=== PATIENT | female | born 1965 | race African-American/Black ===

== ENCOUNTER 2017-07-17 11:47 | Inpatient (IN) | payer OTHER ==
[2017-07-17 14:15] VITALS: BMI 22.7
--- NOTE | 2017-07-17 17:49 | HP ---
CIWA Score - CIWA Score Nausea/Vomitin-Mild Nausea/No Vomiting Muscle Tremors: 4-Moderate,w/Arms Extend Anxiety: 3 Agitation: 4-Moderately Restless Paroxysmal Sweats: 3 Orientation: 0-Oriented Tacttile Disturbances: 0-None Auditory Disturbances: 0-None Visual Disturbances: 0-None Headache: 0-None Present CIWA-Ar Total Score: 15 Admission ROS BHS - HPI Chief Complaint: I am here for detox and rehab. Allergies/Adverse Reactions: Allergies Allergy/AdvReac Type Severity Reaction Status Date / Time ibuprofen [From Motrin] Allergy Severe Hives Verified 07/17/17 17:20 lactose AdvReac Severe diarrhea Verified 07/17/17 17:20 History of Present Illness: pt is a 51yr old female with a history of alcohol and crack/cocaine dependence seeking detox for treatment. pt has a h/o of HIV since 1998 and is currently on antiviral medication. unsure of virial load and tcell count. Exam Limitations: No Limitations - Ebola screening Have you traveled outside of the country in the last 21 days: No Have you had contact with anyone from an Ebola affected area: No Have you been sick,other than usual withdrawal symptoms: No Do you have a fever: No - Review of Systems Constitutional: Chills, Diaphoresis, Loss of Appetite, Night Sweats, Changes in sleep EENT: reports: No Symptoms Reported Respiratory: reports: No Symptoms reported Cardiac: reports: No Symptoms Reported GI: reports: Poor Fluid Intake, Indigestion : reports: No Symptoms Reported Musculoskeletal: reports: Back Pain Integumentary: reports: Flushing, Sweating Neuro: reports: Tingling, Tremors Endocrine: reports: Excessive Sweating, Flushing Hematology: reports: No Symptoms Reported Psychiatric: reports: Judgement Intact, Mood/Affect Appropiate, Orientated x3, Agitated, Anxious Other Systems: Reviewed and Negative Patient History - Patient Medical History Hx Anemia: Yes Hx Asthma: Yes Hx Chronic Obstructive Pulmonary Disease (COPD): No Hx Cancer: No Hx Cardiac Disorders: No Hx Congestive Heart Failure: No Hx Hypertension: Yes Hx Hypercholesterolemia: Yes Hx Pacemaker: No HX Cerebrovascular Accident: No Hx Seizures: No Hx Dementia: No Hx Diabetes: No Hx Gastrointestinal Disorders: Yes (acid reflux) Hx Liver Disease: No Hx Genitourinary Disorders: No Hx Sexually Transmitted Disorders: Yes (genital herpes) Hx Renal Disease (ESRD): No Hx Human Immunodeficiency Virus (HIV): Yes (since 1998) Hx Hepatitis C: No Hx Depression: Yes Hx Suicide Attempt: No (denies) Hx Bipolar Disorder: No Hx Schizophrenia: No - Patient Surgical History Past Surgical History: Yes Hx Neurologic Surgery: No Hx Cataract Extraction: No Hx Cardiac Surgery: No Hx Lung Surgery: No Hx Breast Surgery: No Hx Breast Biopsy: No Hx Abdominal Surgery: No Hx Appendectomy: No Hx Cholecystectomy: No Hx Genitourinary Surgery: No Hx Section: Yes ( at age 37,) Hx Orthopedic Surgery: No Other Surgical History: ectopic at age 20 Anesthesia Reaction: No - PPD History Previous Implant?: Yes Documented Results: Negative w/o proof Date: 11/16/13 PPD to be Administered?: Yes - Reproductive History Patient is a Female of Child Bearing Age (11 -55 yrs old): Yes LMP comment: 2014 Patient : No - Smoking Cessation Smoking history: Current every day smoker Have you smoked in the past 12 months: Yes Aproximately how many cigarettes per day: 40 Hx Chewing Tobacco Use: No Initiated information on smoking cessation: Yes 'Breaking Loose' booklet given: 07/17/17 - Substance & Tx. History Hx Alcohol Use: Yes Hx Substance Use: Yes Substance Use Type: Alcohol, Heroin Hx Substance Use Treatment: Yes (last detox 2013 [facility]) - Substances Abused Crack Route: Smoking Frequency: 3-6 times per week Amount used: $100 Age of first use: 18 Date of Last Use: 07/16/17 Alcohol-vodka/beer Route: Oral Frequency: Daily Amount used: 4 pts./2-6 pks. Age of first use: 15 Date of Last Use: 07/16/17 Family Disease History - Family Disease History Family History: Denies Family Disease History: CA: Father ( lung), Mother ( kidney) Admission Physical Exam BHS - Vital Signs Vital Signs: Vital Signs - 24 hr 07/17/17 14:09 Temperature 99.2 F Pulse Rate 99 H Respiratory 20 Rate Blood Pressure 145/87 - Physical General Appearance: Yes: Appropriately Dressed, Moderate Distress, Irritable, Sweating, Anxious HEENTM: Yes: Hearing grossly Normal, Normal Voice Respiratory: Yes: Lungs Clear, Normal Breath Sounds, No Respiratory Distress Neck: Yes: No masses,lesions,Nodules Breast: Yes: Within Normal Limits Cardiology: Yes: Regular Rhythm, Regular Rate, S1, S2 Abdominal: Yes: Normal Bowel Sounds, Non Tender, Soft Genitourinary: Yes: Within Normal Limits Back: Yes: Normal Inspection Musculoskeletal: Yes: Gait Steady, Back pain Extremities: Yes: Normal Capillary Refill, Normal Inspection, Non-Tender, Tremors Neurological: Yes: Fully Oriented, Normal Mood/Affect, Normal Response Integumentary: Yes: Normal Color, Diaphoresis Lymphatic: Yes: Within Normal Limits - Diagnostic (1) Asthma Current Visit: Yes Status: Chronic Qualifiers: Asthma severity: mild (2) Bipolar 2 disorder Current Visit: No Status: Acute (3) Cocaine dependence Current Visit: Yes Status: Chronic Qualifiers: Substance use status: uncomplicated Qualified Code(s): F14.20 - Cocaine dependence, uncomplicated; F14.20 - Cocaine dependence, uncomplicated; F14.20 - Cocaine dependence, uncomplicated (4) HIV (human immunodeficiency virus infection) Current Visit: Yes Status: Chronic (5) Nicotine dependence Current Visit: Yes Status: Chronic Qualifiers: Nicotine product type: cigarettes (6) Alcohol dependence with uncomplicated withdrawal Current Visit: Yes Status: Chronic Cleared for Admission [facility] - Detox or Rehab [facility] Level of Care: Medically Managed Detox Regimen/Protocol: Librium [facility] Breath Alcohol Content Breath Alcohol Content: 0 Urine Pregancy Test - Result Urine Test Results: Negative- NO Line Present Urine Drug Screen - Results Drug Screen Negative: No Urine Drug Screen Results: JACKIE-Cocaine
[2017-07-17] MEDS ORDERED: NICOTINE POLACRILEX 4 MG GUM BUC PRN (17:54)
[2017-07-17] MEDS ORDERED: MAGNESIUM HYDROX 2400MG/30ML ORAL SUSPENSION 30 ML CUP PO PRN (17:54)
[2017-07-17] MEDS ORDERED: diphenhydrAMINE HCL 50 MG CAPSULE PO PRN (17:54)
[2017-07-17] MEDS ORDERED: LOPERAMIDE HCL 2 MG CAPSULE PO PRN (17:54)
[2017-07-17] MEDS ORDERED: chlordiazePOXIDE HCL 25 MG CAPSULE PO ONE (17:54)
[2017-07-17] MEDS ORDERED: guaiFENesin/D-METHORPHAN HB 10 ML UNIT-DOSE CUPS PO PRN (17:54)
[2017-07-17] MEDS ORDERED: hydrOXYzine PAMOATE 50 MG CAPSULE (FP) PO PRN (17:54)
[2017-07-17] MEDS ORDERED: MAG HYDROX/AL HYDROX/SIMETH 30 ML UNIT-DOSE CUP PO PRN (17:54)
[2017-07-17] MEDS ORDERED: MAGNESIUM CITRATE 300 ML BOTTLE PO PRN (17:54)
[2017-07-17] MEDS ORDERED: P-EPHED 60MG/TRIPROLIDI 2.5MG TABLET PO PRN (17:54)
[2017-07-17] MEDS ORDERED: ACETAMINOPHEN 325 MG TABLET (FP) PO PRN (17:54)
[2017-07-17] MEDS ORDERED: MENTHOL/PHENOL 1 EACH UD MM PRN (17:54)
[2017-07-17] MEDS ORDERED: chlordiazePOXIDE HCL 25 MG CAPSULE PO PRN (17:54)
[2017-07-17] MEDS ORDERED: ALBUTEROL SO4 18 GM HFA INHALER IH PRN (17:55)
[2017-07-17] MEDS: ENALAPRIL MALEATE 5 MG TABLET (FP) PO SCH (19:59)
[2017-07-17] MEDS ORDERED: DOLUTEGRAVIR SODIUM 50 MG TABLET PO SCH (22:00)
[2017-07-17 22:05] LABS: URINE APPEARANCE CLOUDY; URINE BLOOD NEGATIVE (NEGATIVE); URINE COLOR AMBER; URINE GLUCOSE (UA) NEGATIVE (NEGATIVE); URINE KETONE NEGATIVE (NEGATIVE); URINE NITRITE NEGATIVE (NEGATIVE); URINE UROBILINOGEN 4.0 E.U/dl mg/dL (0.2-1.0)
[2017-07-17 22:12] LABS: URINE PROTEIN 2+ (NEGATIVE)
[2017-07-17 22:17] LABS: URINE HYALINE CAST 2 /lpf; URINE MUCUS MANY; URINE RBC 1 /hpf (0-3); URINE WBC 2 /hpf (3-5)
[2017-07-17] MEDS: THIAMINE HCL 100 MG TABLET (FP) PO SCH (22:26)
[2017-07-17] MEDS: ATORVASTATIN CA 40 MG TABLET (FP) PO SCH (22:26)
[2017-07-17] MEDS: DOLUTEGRAVIR 50 MG PO SCH (22:26)
[2017-07-17] MEDS: chlordiazePOXIDE HCL 25 MG CAPSULE PO SCH (22:26)
[2017-07-17] MEDS: valACYclovir HCL 500 MG TABLET (FP) PO SCH (22:26)
[2017-07-18] MEDS: chlordiazePOXIDE HCL 25 MG CAPSULE PO SCH ×4 (05:57→22:20)
[2017-07-18 07:39] LABS: URINE LEUK ESTERASE Negative (NEGATIVE)
[2017-07-18 10:21] LABS: MCH 23.7 pg (25.7-33.7); MCHC 30.8 g/dl (32.0-36.0); MEAN CELL VOLUME 76.8 fl (80-96); MEAN PLT VOLUME 8.5 fl (7.5-11.1); PLATELET COUNT 329 K/MM3 (134-434); RDW 17.2 % (11.6-15.6); WHITE BLOOD COUNT 5.4 K/mm3 (4.0-10.0)
[2017-07-18 10:46] LABS: ALBUMIN 3.3 g/dl (3.4-5.0); ANION GAP 9 (8-16); CO2 31 mmol/L (21-32); GLUCOSE,RANDOM 86 mg/dL (74-106); SGOT/AST 73 U/L (15-37); SGPT/ALT 50 U/L (12-78)
[2017-07-18 10:50] LABS: ALK PHOS 76 U/L (45-117); BILIRUBIN,TOTAL 0.5 mg/dL (0.2-1.0); CALCIUM 9.5 mg/dL (8.5-10.1); CREATININE 0.7 mg/dL (0.55-1.02)
[2017-07-18] MEDS: [UNRECOGNIZED DRUG - OTHER] PO SCH (10:51)
[2017-07-18] MEDS: NICOTINE 21 MG/24 HOURS TOPICAL PATCH TD SCH (10:51)
[2017-07-18] MEDS: COBICISTAT PO SCH (10:51)
[2017-07-18] MEDS: valACYclovir HCL 500 MG TABLET (FP) PO SCH ×2 (10:51→22:20)
[2017-07-18] MEDS: DOLUTEGRAVIR 50 MG PO SCH ×2 (10:51→22:22)
[2017-07-18] MEDS: DARUNAVIR PO SCH (10:51)
[2017-07-18] MEDS: ASPIRIN 81 MG CHEWABLE TABLETS PO SCH (10:51)
[2017-07-18] MEDS: PRENATAL VITAMINS W/ FOLIC ACID TABLET (FP) PO SCH (10:51)
[2017-07-18] MEDS: ENALAPRIL MALEATE 5 MG TABLET (FP) PO SCH (10:51)
--- NOTE | 2017-07-18 11:29 | PN ---
S CIWA - CIWA Score Nausea/Vomitin-No Nausea/No Vomiting Muscle Tremors: 4-Moderate,w/Arms Extend Anxiety: 3 Agitation: 4-Moderately Restless Paroxysmal Sweats: 3 Orientation: 0-Oriented Tacttile Disturbances: 0-None Auditory Disturbances: 0-None Visual Disturbances: 0-None Headache: 0-None Present CIWA-Ar Total Score: 14 BHS Progress Note (SOAP) Subjective: agitation sweats diarrhea interrupted sleep mild shakes Objective: 07/18/17 11:28 Vital Signs Temperature 98.3 F 07/18/17 11:21 Pulse Rate 100 H 07/18/17 11:21 Respiratory Rate 18 07/18/17 11:21 Blood Pressure 113/80 07/18/17 11:21 O2 Sat by Pulse Oximetry (%) Laboratory Tests 07/17/17 07/18/17 07/18/17 19:00 07:00 07:00 WBC 5.4 D RBC 5.48 H Hgb 13.0 D Hct 42.1 D MCV 76.8 L MCH 23.7 L MCHC 30.8 L RDW 17.2 H D Plt Count 329 MPV 8.5 D Sodium 140 Potassium 3.3 L D Chloride 100 Carbon Dioxide 31 Anion Gap 9 BUN 5 L D Creatinine 0.7 Creat Clearance w eGFR > 60 Random Glucose 86 Calcium 9.5 Total Bilirubin 0.5 D AST 73 H D ALT 50 D Alkaline Phosphatase 76 Total Protein 8.0 D Albumin 3.3 L Urine Color Lise Urine Appearance Cloudy Urine pH 6.0 Ur Specific [place] 1.015 Urine Protein 2+ H Urine Glucose (UA) Negative Urine Ketones Negative Urine Blood Negative Urine Nitrite Negative Urine Bilirubin 2.0 Urine Urobilinogen 4.0 e.u/dl H Ur Leukocyte Esterase Negative Urine RBC 1 Urine WBC 2 Ur Epithelial Cells Many Hyaline Casts 2 Urine Mucus Many low potassium 3.3; replenish with k-dur 40meq x 4 days aaox3 ambulating no acute distress Assessment: 07/18/17 11:29 withdrawal sx Plan: continue detox increase fluids kdur ordered
[2017-07-18] MEDS ORDERED: FLU VACCINE QUAD 60 MCG/0.5 ML (MDV 17-18) IM ONE (12:00)
[2017-07-18] MEDS: POTASSIUM CHLORIDE TABS 20 MEQ TABLET.ER (FP) PO SCH (13:11)
--- NOTE | 2017-07-18 13:17 | EKG ---
Test Reason : Blood Pressure : / mmHG Vent. Rate : 087 BPM Atrial Rate : 087 BPM P-R Int : 132 ms QRS Dur : 086 ms QT Int : 380 ms P-R-T Axes : 038 061 031 degrees QTc Int : 457 ms NORMAL SINUS RHYTHM MINIMAL VOLTAGE CRITERIA FOR LVH, MAY BE NORMAL VARIANT T WAVE ABNORMALITY, CONSIDER ANTERIOR ISCHEMIA ABNORMAL ECG NO PREVIOUS ECGS AVAILABLE Confirmed by NATALIA HURTADO, FLORENTINO ([id number]) on 07/18/2017 1:17:04 PM Referred By: Jen Randle Confirmed By:FLORENTINO FISHER MD
--- NOTE | 2017-07-18 14:28 | CONSULT ---
[facility] Psychiatric Consult - Data Date of interview: 07/18/17 Admission source: [facility] Identifying data: Readmission to [facility] for this 51 y/o AA female seeking detox treatment on for cocaine (crack) and alcohol dependence.Patient is single,a mother of four,homeless,unemployed and supported on SSI benefits. Substance Abuse History: Confirmed by patient in this interview. Smoking Cessation. Smoking history: Current every day smoker. Have you smoked in the past 12 months: Yes. Aproximately how many cigarettes per day: 40. Hx Chewing Tobacco Use: No. Initiated information on smoking cessation: Yes. 'Breaking Loose' booklet given: 07/17/17. - Substance & Tx. History. Hx Alcohol Use: Yes. Hx Substance Use: Yes. Substance Use Type: Alcohol, Heroin. Hx Substance Use Treatment: Yes (last detox 2013 [facility]). - Substances Abused. Crack. Route: Smoking. Frequency: 3-6 times per week. Amount used: $100. Age of first use: 18. Date of Last Use: 07/16/17. Alcohol-vodka/beer. Route: Oral. Frequency: Daily. Amount used: 4 pts./2-6 pks. Age of first use : 15. Date of Last Use: 07/16/17 Medical History: Multiple medical co-morbidities : HIV infection since 1998 (on ART medications ),past history of pneumocystis carinii pneumonia,herpes genitalis,anemia,bronchial asthma,hyperension,dyslipidemia,GERD,antecedent of section (age 37) and one ectopic (age 20). Psychiatric History: History of three psychiatric hospitalizations at [facility] in [facility].Diagnosed with Bipolar Disorder.Wsa prescribed zyprexa,zoloft and trazodone.Non-adherent to OPD care + medications for " more than seven months." Ms Redmond has difficulty remembering location and name of previous outpatient program." I believe that it was a place called [facility] somewhere in [place]."No reported history of suicide attempts. Physical/Sexual Abuse/Trauma History: Patient denies history of abuse. Additional Comment: Urine Drug Screen Results: JACKIE-Cocaine.Noted. Mental Status Exam - Mental Status Exam Alert and Oriented to: Time, Place, Person Cognitive Function: Good Patient Appearance: Well Groomed Mood: Hopeful, Euthymic Affect: Appropriate, Normal Range Patient Behavior: Fatigued, Cooperative Speech Pattern: Clear Voice Loudness: Normal Thought Process: Goal Oriented Thought Disorder: Not Present Hallucinations: Denies Suicidal Ideation: Denies Homicidal Ideation: Denies Insight/Judgement: Poor Sleep: Poorly, Difficulty falling asleep Appetite: Good Muscle strength/Tone: Normal Gait/Station: Normal Psychiatric Findings - Problem List ([place] 1, 2,3) (1) Alcohol dependence with uncomplicated withdrawal Current Visit: Yes Status: Acute (2) Cocaine dependence Current Visit: Yes Status: Acute Qualifiers: Substance use status: uncomplicated Qualified Code(s): F14.20 - Cocaine dependence, uncomplicated; F14.20 - Cocaine dependence, uncomplicated; F14.20 - Cocaine dependence, uncomplicated (3) Nicotine dependence Current Visit: Yes Status: Acute Qualifiers: Nicotine product type: cigarettes (4) Substance induced mood disorder Current Visit: Yes Status: Acute (5) Bipolar disorder Current Visit: Yes Status: Chronic Comment: Self-report.Non-adherence to OPD care. (6) Asthma Current Visit: Yes Status: Chronic Qualifiers: Asthma severity: mild (7) HIV (human immunodeficiency virus infection) Current Visit: Yes Status: Chronic (8) Insomnia Current Visit: Yes Status: Acute - Initial Treatment Plan Initial Treatment Plan: Psychoeducation.Detoxification.Medications : zyprexa 5 mg po hs + trazodone 50 mg po hs + zoloft 50 mg po daily.Ordered at patient's request (willing to resume treatment).Side effects/benefits of each drug are reviewed with the patient.Made aware,in particular,of potential for metabolic syndrome,suicidal ideation and sexual dysfunction.Patient is in agreemebt with this careplan.Observation.
[2017-07-18] MEDS: traZODone HCL 50 MG TABLET (FP) PO SCH (22:20)
[2017-07-18] MEDS: OLANZapine 5 MG TABLET PO SCH (22:20)
[2017-07-18] MEDS: ATORVASTATIN CA 40 MG TABLET (FP) PO SCH (22:20)
[2017-07-18] MEDS: THIAMINE HCL 100 MG TABLET (FP) PO SCH (22:20)
[2017-07-19] MEDS: chlordiazePOXIDE HCL 25 MG CAPSULE PO SCH ×3 (06:03→17:24)
[2017-07-19] MEDS: COBICISTAT PO SCH (10:28)
[2017-07-19] MEDS: DARUNAVIR PO SCH (10:28)
[2017-07-19] MEDS: [UNRECOGNIZED DRUG - OTHER] PO SCH (10:28)
[2017-07-19] MEDS: DOLUTEGRAVIR 50 MG PO SCH ×2 (10:28→22:35)
[2017-07-19] MEDS: PRENATAL VITAMINS W/ FOLIC ACID TABLET (FP) PO SCH (10:29)
[2017-07-19] MEDS: valACYclovir HCL 500 MG TABLET (FP) PO SCH ×2 (10:29→22:34)
[2017-07-19] MEDS: ASPIRIN 81 MG CHEWABLE TABLETS PO SCH (10:29)
[2017-07-19] MEDS: ENALAPRIL MALEATE 5 MG TABLET (FP) PO SCH (10:29)
[2017-07-19] MEDS: SERTRALINE HCL 50 MG TABLET (FP) PO SCH (10:30)
[2017-07-19] MEDS: POTASSIUM CHLORIDE TABS 20 MEQ TABLET.ER (FP) PO SCH (10:30)
[2017-07-19] MEDS: NICOTINE 21 MG/24 HOURS TOPICAL PATCH TD SCH (10:31)
--- NOTE | 2017-07-19 11:14 | PN ---
[facility] CIWA - CIWA Score Nausea/Vomitin-No Nausea/No Vomiting Muscle Tremors: 3 Anxiety: 3 Agitation: 4-Moderately Restless Paroxysmal Sweats: 3 Orientation: 0-Oriented Tacttile Disturbances: 0-None Auditory Disturbances: 0-None Visual Disturbances: 0-None Headache: 0-None Present CIWA-Ar Total Score: 13 S Progress Note (SOAP) Subjective: sweats shakes back pain when i breath interrupted sleep anxiety Objective: 07/19/17 11:12 Vital Signs Temperature 97.3 F L 07/19/17 11:08 Pulse Rate 100 H 07/19/17 11:08 Respiratory Rate 18 07/19/17 11:08 Blood Pressure 136/88 07/19/17 11:08 O2 Sat by Pulse Oximetry (%) Laboratory Tests 07/17/17 07/18/17 07/18/17 19:00 07:00 07:00 WBC 5.4 D RBC 5.48 H Hgb 13.0 D Hct 42.1 D MCV 76.8 L MCH 23.7 L MCHC 30.8 L RDW 17.2 H D Plt Count 329 MPV 8.5 D Sodium 140 Potassium 3.3 L D Chloride 100 Carbon Dioxide 31 Anion Gap 9 BUN 5 L D Creatinine 0.7 Creat Clearance w eGFR > 60 Random Glucose 86 Calcium 9.5 Total Bilirubin 0.5 D AST 73 H D ALT 50 D Alkaline Phosphatase 76 Total Protein 8.0 D Albumin 3.3 L Urine Color Lise Urine Appearance Cloudy Urine pH 6.0 Ur Specific [place] 1.015 Urine Protein 2+ H Urine Glucose (UA) Negative Urine Ketones Negative Urine Blood Negative Urine Nitrite Negative Urine Bilirubin 2.0 Urine Urobilinogen 4.0 e.u/dl H Ur Leukocyte Esterase Negative Urine RBC 1 Urine WBC 2 Ur Epithelial Cells Many Hyaline Casts 2 Urine Mucus Many RPR Titer 07/18/17 07:00 WBC RBC Hgb Hct MCV MCH MCHC RDW Plt Count MPV Sodium Potassium Chloride Carbon Dioxide Anion Gap BUN Creatinine Creat Clearance w eGFR Random Glucose Calcium Total Bilirubin AST ALT Alkaline Phosphatase Total Protein Albumin Urine Color Urine Appearance Urine pH Ur Specific [place] Urine Protein Urine Glucose (UA) Urine Ketones Urine Blood Urine Nitrite Urine Bilirubin Urine Urobilinogen Ur Leukocyte Esterase Urine RBC Urine WBC Ur Epithelial Cells Hyaline Casts Urine Mucus RPR Titer Nonreactive aaox3 ambulating lungs assessed CTA ordered spinal/chest x-ray for pt c/o encouraged tylenol prn Assessment: 07/19/17 11:13 withdrawal sx Plan: continue detox increase fluids f/u on xray ordered
[2017-07-19] MEDS: OLANZapine 5 MG TABLET PO SCH (22:34)
[2017-07-19] MEDS: traZODone HCL 50 MG TABLET (FP) PO SCH (22:34)
[2017-07-19] MEDS: ATORVASTATIN CA 40 MG TABLET (FP) PO SCH (22:34)
[2017-07-19] MEDS: THIAMINE HCL 100 MG TABLET (FP) PO SCH (22:34)
[2017-07-19] MEDS: chlordiazePOXIDE 5 MG CAPSULE PO SCH (22:34)
[2017-07-20] MEDS: chlordiazePOXIDE 5 MG CAPSULE PO SCH ×3 (06:02→16:58)
[2017-07-20] MEDS: POTASSIUM CHLORIDE TABS 20 MEQ TABLET.ER (FP) PO SCH (10:43)
[2017-07-20] MEDS: PRENATAL VITAMINS W/ FOLIC ACID TABLET (FP) PO SCH (10:43)
[2017-07-20] MEDS: SERTRALINE HCL 50 MG TABLET (FP) PO SCH (10:43)
[2017-07-20] MEDS: ASPIRIN 81 MG CHEWABLE TABLETS PO SCH (10:43)
[2017-07-20] MEDS: ENALAPRIL MALEATE 5 MG TABLET (FP) PO SCH (10:44)
[2017-07-20] MEDS: NICOTINE 21 MG/24 HOURS TOPICAL PATCH TD SCH (10:44)
[2017-07-20] MEDS: COBICISTAT PO SCH (10:45)
[2017-07-20] MEDS: [UNRECOGNIZED DRUG - OTHER] PO SCH (10:45)
[2017-07-20] MEDS: DOLUTEGRAVIR 50 MG PO SCH ×2 (10:45→22:19)
[2017-07-20] MEDS: DARUNAVIR PO SCH (10:45)
[2017-07-20] MEDS: valACYclovir HCL 500 MG TABLET (FP) PO SCH ×2 (10:49→22:19)
[2017-07-20] MEDS ORDERED: chlordiazePOXIDE HCL 25 MG CAPSULE PO ONE (13:00)
--- NOTE | 2017-07-20 15:15 | PN ---
[facility] CIWA - CIWA Score Nausea/Vomitin-Mild Nausea/No Vomiting Muscle Tremors: 4-Moderate,w/Arms Extend Anxiety: 4-Mod. Anxious/Guarded Agitation: 3 Paroxysmal Sweats: No Perspiration Orientation: 1-Uncertain about Date Tacttile Disturbances: 1-Very Mild Itch/Numbness Auditory Disturbances: 0-None Visual Disturbances: 0-None Headache: 0-None Present CIWA-Ar Total Score: 14 S Progress Note (SOAP) Subjective: Interrupted sleep, anxiety, chills, chest discomfort on inspiration, shakes Objective: 07/20/17 15:14 Vital Signs Temperature 97.9 F 07/20/17 14:00 Pulse Rate 87 07/20/17 14:00 Respiratory Rate 17 07/20/17 14:00 Blood Pressure 128/74 07/20/17 14:00 O2 Sat by Pulse Oximetry (%) Laboratory Last Values WBC 5.4 K/mm3 (4.0-10.0) D 07/18/17 07:00 RBC 5.48 M/mm3 (3.60-5.2) H 07/18/17 07:00 Hgb 13.0 GM/dL (10.7-15.3) D 07/18/17 07:00 Hct 42.1 % (32.4-45.2) D 07/18/17 07:00 MCV 76.8 fl (80-96) L 07/18/17 07:00 MCH 23.7 pg (25.7-33.7) L 07/18/17 07:00 MCHC 30.8 g/dl (32.0-36.0) L 07/18/17 07:00 RDW 17.2 % (11.6-15.6) H D 07/18/17 07:00 Plt Count 329 K/MM3 (134-434) 07/18/17 07:00 MPV 8.5 fl (7.5-11.1) D 07/18/17 07:00 Sodium 140 mmol/L (136-145) 07/18/17 07:00 Potassium 3.3 mmol/L (3.5-5.1) L D 07/18/17 07:00 Chloride 100 mmol/L (98-107) 07/18/17 07:00 Carbon Dioxide 31 mmol/L (21-32) 07/18/17 07:00 Anion Gap 9 (8-16) 07/18/17 07:00 BUN 5 mg/dL (7-18) L D 07/18/17 07:00 Creatinine 0.7 mg/dL (0.55-1.02) 07/18/17 07:00 Creat Clearance w eGFR > 60 (>60) 07/18/17 07:00 Random Glucose 86 mg/dL (74-106) 07/18/17 07:00 Calcium 9.5 mg/dL (8.5-10.1) 07/18/17 07:00 Total Bilirubin 0.5 mg/dL (0.2-1.0) D 07/18/17 07:00 AST 73 U/L (15-37) H D 07/18/17 07:00 ALT 50 U/L (12-78) D 07/18/17 07:00 Alkaline Phosphatase 76 U/L (45-117) 07/18/17 07:00 Total Protein 8.0 g/dl (6.4-8.2) D 07/18/17 07:00 Albumin 3.3 g/dl (3.4-5.0) L 07/18/17 07:00 Urine Color Lise 07/17/17 19:00 Urine Appearance Cloudy 07/17/17 19:00 Urine pH 6.0 (5.0-8.0) 07/17/17 19:00 Ur Specific [place] 1.015 (1.005-1.025) 07/17/17 19:00 Urine Protein 2+ (NEGATIVE) H 07/17/17 19:00 Urine Glucose (UA) Negative (NEGATIVE) 07/17/17 19:00 Urine Ketones Negative (NEGATIVE) 07/17/17 19:00 Urine Blood Negative (NEGATIVE) 07/17/17 19:00 Urine Nitrite Negative (NEGATIVE) 07/17/17 19:00 Urine Bilirubin 2.0 (NEGATIVE) 07/17/17 19:00 Urine Urobilinogen 4.0 e.u/dl mg/dL (0.2-1.0) H 07/17/17 19:00 Ur Leukocyte Esterase Negative (NEGATIVE) 07/17/17 19:00 Urine RBC 1 /hpf (0-3) 07/17/17 19:00 Urine WBC 2 /hpf (3-5) 07/17/17 19:00 Ur Epithelial Cells Many /hpf (FEW) 07/17/17 19:00 Hyaline Casts 2 /lpf 07/17/17 19:00 Urine Mucus Many 07/17/17 19:00 RPR Titer Nonreactive (NONREACTIVE) 07/18/17 07:00 Labs noted. Results of chest x-ray noted 07/20/17 15:18 Assessment: Withdrawal sx Plan: Continue detox. Continue potassium replacement therapy. Results of chest x-ray (right basilar linear atelectasis ) discussed with patient. Patient unable to recall name of PMD at [facility]. Patient instructed to F/U PMD on discharge for further evaluation
[2017-07-20] MEDS: traZODone HCL 50 MG TABLET (FP) PO SCH (22:18)
[2017-07-20] MEDS: ATORVASTATIN CA 40 MG TABLET (FP) PO SCH (22:19)
[2017-07-20] MEDS: THIAMINE HCL 100 MG TABLET (FP) PO SCH (22:19)
[2017-07-20] MEDS: chlordiazePOXIDE HCL 10 MG CAPSULE PO SCH (22:19)
[2017-07-20] MEDS: OLANZapine 5 MG TABLET PO SCH (22:20)
[2017-07-21] MEDS: chlordiazePOXIDE HCL 10 MG CAPSULE PO SCH ×2 (05:52→11:01)
[2017-07-21 06:52] VITALS: BP 141/71; PULSE 98; TEMP 97.3
--- NOTE | 2017-07-21 08:24 | DS ---
[facility] Detox Discharge Summary Admission Date: 07/17/17 Discharge Date: 07/21/17 - History Present History: Alcohol Dependence, Cocaine Dependence Pertinent Past History: asthma hiv nicotine dependence bipolar 2 disorder hypercholesterolemia hypertension - Physical Exam Results Vital Signs: Vital Signs Temperature 97.3 F L 07/21/17 06:52 Pulse Rate 98 H 07/21/17 06:52 Respiratory Rate 18 07/21/17 06:52 Blood Pressure 141/71 07/21/17 06:52 O2 Sat by Pulse Oximetry (%) - Treatment Hospital Course: Detox Protocol Followed, Detoxed Safely, Responded well, Discharged Condition Good, Rehab Referral Accepted Patient has Accepted [facility] Referral [facility] - Medication Discharge Medications: Ambulatory Orders Albuterol Sulfate Inhaler - [Ventolin HFA Inhaler -] 2 inh PO Q4H PRN 11/14/13 Valacyclovir HCl [Valtrex -] 500 mg PO BID 11/14/13 Olanzapine [Zyprexa] 10 mg PO DAILY #30 tablet 11/16/13 Trazodone HCl [Desyrel -] 50 mg PO HS #30 tablet 11/16/13 Venlafaxine HCl [Effexor -] 75 mg PO DAILY #30 tablet 11/16/13 Aspirin [ASA -] 81 mg PO DAILY 07/17/17 Atorvastatin Ca [Lipitor] 40 mg PO HS 07/17/17 Darunavir/Cobicistat [Prezcobix 800 mg-150 mg Tablet] 1 each PO DAILY 07/17/17 Dolutegravir Sodium [Tivicay] 50 mg PO BID 07/17/17 Enalapril Maleate [Vasotec -] 5 mg PO DAILY 07/17/17 Folic Acid - 1 mg PO DAILY 07/17/17 Multivitamins [Tab-A-Vit -] 1 tab PO DAILY 07/17/17 Thiamine HCl [Vitamin B-1] 100 mg PO DAILY 07/17/17 Olanzapine [Zyprexa] 5 mg PO HS #30 tablet 07/18/17 Sertraline HCl [Zoloft -] 50 mg PO DAILY #30 tablet 07/18/17 Trazodone HCl 50 mg PO HS #30 tablet 07/18/17 - Diagnosis (1) Alcohol dependence with uncomplicated withdrawal Current Visit: Yes Status: Acute (2) Cocaine dependence Current Visit: Yes Status: Acute Qualifiers: Substance use status: uncomplicated Qualified Code(s): F14.20 - Cocaine dependence, uncomplicated; F14.20 - Cocaine dependence, uncomplicated; F14.20 - Cocaine dependence, uncomplicated (3) Nicotine dependence Current Visit: Yes Status: Acute Qualifiers: Nicotine product type: cigarettes (4) Asthma Current Visit: Yes Status: Chronic Qualifiers: Asthma severity: mild (5) Bipolar disorder Current Visit: Yes Status: Chronic (6) HIV (human immunodeficiency virus infection) Current Visit: Yes Status: Chronic (7) Hypertension Current Visit: Yes Status: Acute (8) Hypercholesterolemia Current Visit: Yes Status: Acute - AMA Did Patient Leave Against Medical Advice: No
[2017-07-21] MEDS: SERTRALINE HCL 50 MG TABLET (FP) PO SCH (10:36)
[2017-07-21] MEDS: PRENATAL VITAMINS W/ FOLIC ACID TABLET (FP) PO SCH (10:36)
[2017-07-21] MEDS: POTASSIUM CHLORIDE TABS 20 MEQ TABLET.ER (FP) PO SCH (10:36)
[2017-07-21] MEDS: ASPIRIN 81 MG CHEWABLE TABLETS PO SCH (10:36)
[2017-07-21] MEDS: DOLUTEGRAVIR 50 MG PO SCH (10:36)
[2017-07-21] MEDS: valACYclovir HCL 500 MG TABLET (FP) PO SCH (10:36)
[2017-07-21] MEDS: DARUNAVIR PO SCH (10:37)
[2017-07-21] MEDS: COBICISTAT PO SCH (10:37)
[2017-07-21] MEDS: [UNRECOGNIZED DRUG - OTHER] PO SCH (10:37)
[2017-07-21] MEDS: NICOTINE 21 MG/24 HOURS TOPICAL PATCH TD SCH (10:38)
[2017-07-21] MEDS: ENALAPRIL MALEATE 5 MG TABLET (FP) PO SCH (10:58)
== END 2017-07-21 11:00 | disposition other institution (70) | DRG 774 ==
LOC: YASAS 11:47 → Y6N 18:36
PROVIDERS: ADMIT Internal Medicine; ATTEND Internal Medicine
PROC: HZ2ZZZZ Detoxification Services for Substance Abuse Treatment (ICD-10-PCS; principal; 2017-07-17)
DX: F10.230 Alcohol dependence with withdrawal, uncomplicated (principal); F14.20 Cocaine dependence, uncomplicated; F17.210 Nicotine dependence, cigarettes, uncomplicated; F31.81 Bipolar II disorder; F19.24 Other psychoactive substance dependence with psychoactive substance-induced mood disorder; J45.909 Unspecified asthma, uncomplicated; Z21 Asymptomatic human immunodeficiency virus [HIV] infection status; I10 Essential (primary) hypertension; E78.5 Hyperlipidemia, unspecified; K21.9 Gastro-esophageal reflux disease without esophagitis; D64.9 Anemia, unspecified; Z87.42 Personal history of other diseases of the female genital tract; Z88.6 Allergy status to analgesic agent; Z91.011 Allergy to milk products
CPT/HCPCS: 36415; 71020-TC; 72100-TC; 80053; 81003; 81015; 85027; 86593; 90688; 93005; 93010; G0008